=== PATIENT | female | born 1930 | race Caucasian/White ===

== ENCOUNTER → 2017-01-16 | Outpatient (CLI) | payer MEDICARE, OTHER ==
[~2017-01-16] MED LIST: ALLO100T30 PO; AMLO2.5T2 PO; ASPI-496 PO; CHOL200024 PO; EZET10TA3 PO; FAMO20TA7 PO; FURO-93 PO; GABA300C10 PO; HEPA500024 SQ; HYDR-3241 PO; HYDR1TAB12 PO; IRBE150T25 PO; IRBE75TA10 PO; LEVO75TA5 PO; MULT-717 PO; OMEP-110 PO; OMNIPAQUE 350 MG/ML, 100ML BOTTLE ONE; POTA10TA90 PO; POTASSIUM CHLORIDE PO; PROP10TA PO; PROP80TA PO; TERA1CAP3 PO; [UNRECOGNIZED DRUG - CODE] PO
== END | disposition home or self-care (01) ==
LOC: CFH 14:18
PROVIDERS: ATTEND Surgery
DX: I71.2 Thoracic aortic aneurysm, without rupture (principal); J98.11 Atelectasis; Z95.828 Presence of other vascular implants and grafts; I70.1 Atherosclerosis of renal artery; I77.4 Celiac artery compression syndrome; I70.0 Atherosclerosis of aorta
CPT/HCPCS: 71275; 74175; Q9967

== ENCOUNTER → 2017-08-02 | Outpatient (CLI) | payer MEDICARE ==
[~2017-08-02] MED LIST changes: +EZET10TA18 PO; -EZET10TA3 PO; -OMNIPAQUE 350 MG/ML, 100ML BOTTLE ONE; +POTA10TA6 PO; -POTA10TA90 PO
== END ==
LOC: RAD 14:04
PROVIDERS: ATTEND Nurse Practitioner Family
DX: K57.30 Diverticulosis of large intestine without perforation or abscess without bleeding (principal); I71.2 Thoracic aortic aneurysm, without rupture; Z95.828 Presence of other vascular implants and grafts
CPT/HCPCS: 74176

== ENCOUNTER → 2018-01-17 | Outpatient (CLI) | payer MEDICARE | END | disposition home or self-care (01) | LOC: CFH 14:20 | PROVIDERS: ATTEND Surgery | DX: Z12.31 Encounter for screening mammogram for malignant neoplasm of breast (principal) | CPT/HCPCS: 77067 ==

== ENCOUNTER → 2018-02-28 | Outpatient (CLI) | payer MEDICARE | END | disposition home or self-care (01) | LOC: CFH 13:20 | PROVIDERS: ATTEND Licensed Practical Nurse | DX: Z13.820 Encounter for screening for osteoporosis (principal); N95.8 Other specified menopausal and perimenopausal disorders | CPT/HCPCS: 77080 ==

== ENCOUNTER → 2018-03-21 | Outpatient (CLI) | payer MEDICARE, OTHER | END | disposition home or self-care (01) | LOC: CFH 12:58 | PROVIDERS: ATTEND Surgery | DX: I71.2 Thoracic aortic aneurysm, without rupture (principal); I71.4 Abdominal aortic aneurysm, without rupture; I51.7 Cardiomegaly; M85.80 Other specified disorders of bone density and structure, unspecified site; J98.11 Atelectasis; R91.1 Solitary pulmonary nodule | CPT/HCPCS: 71250 ==